=== PATIENT | male | born 1990 | race African-American/Black ===

== ENCOUNTER 2020-10-10 00:25 | Emergency (ER) | payer OTHER, MEDICAID ==
[~2020-10-10] VITALS: Ht 182.9 cm; Wt 119.0 kg
[2020-10-10 00:59] VITALS: BP 132/75
== END 2020-10-10 01:25 | disposition home or self-care (01) ==
LOC: ER 00:33
DX: Z02.89 Encounter for other administrative examinations (principal); R03.0 Elevated blood-pressure reading, without diagnosis of hypertension
CPT/HCPCS: 99283